=== PATIENT | female | born 1965 | race Caucasian/White ===

== ENCOUNTER 2018-02-10 11:36 | Emergency (ER) | payer OTHER ==
[~2018-02-10] VITALS: Ht 165.1 cm; Wt 66.0 kg
[~2018-02-10 11:36] MED LIST: CHOLESTYRAMINE378 GM PO; METRONIDAZOLE500 MG PO
[2018-02-10] MEDS ORDERED: VOLTAREN 1% GE100 GM TP (12:55)
[2018-02-10 13:07] VITALS: BP 128/86
== END 2018-02-10 13:09 | disposition home or self-care (01) ==
LOC: EME 11:36
DX: M75.31 Calcific tendinitis of right shoulder (principal)
CPT/HCPCS: 73030; 99281; 99283